=== PATIENT | female | born 1985 | race Caucasian/White ===

== ENCOUNTER 2017-08-30 11:00 | Observation (INO) | payer OTHER ==
[~2017-08-30 11:00] MED LIST: DSS100 PO; IBUP-2070 PO; METH850P2 PO; PERCT PO; PREN1TAB78 PO
[2017-08-30] MEDS ORDERED: GLYB2.5 PO (11:11)
[2017-08-30] MEDS ORDERED: PREN1TAB89 PO (11:11)
[2017-08-30 12:01] LABS: BASOPHILS % (AUTO) 0.6 % (0.0-2.0); EOSINOPHILS % (AUTO) 0.3 % (1.0-6.0); HEMATOCRIT 32.5 % (36-46); HEMOGLOBIN 11.2 g/dL (12.0-16.0); LYMPHOCYTES # (AUTO) 1.1 K/uL (1.0-4.8); LYMPHOCYTES % (AUTO) 16.8 % (22.0-44.0); MEAN CORPUSCULAR HEMOGLOBIN 28.8 pg (26.0-34.0); MEAN CORPUSCULAR HGB CONC 34.4 G/dL (31.0-37.0); MEAN CORPUSCULAR VOLUME 84 fL (80-100); MONOCYTES # (AUTO) 0.4 K/uL (0.1-1.0); MONOCYTES % (AUTO) 6.5 % (2.0-9.0); NEUTROPHILS # (AUTO) 4.9 K/uL (1.8-7.7); NEUTROPHILS % (AUTO) 75.8 % (40.0-70.0); PLATELET COUNT (AUTO) 141 K/uL (150-450); RED BLOOD CELL COUNT(AUTO) 3.89 MIL/uL (4.00-5.20); RED CELL DISTRIBUTION WIDTH 14.1 % (11.5-14.5)
[2017-08-30 12:11] LABS: ANION GAP 10 mmol/L (8-16); CALCIUM, TOTAL 8.3 mg/dL (8.8-10.5); CARBON DIOXIDE 22 mmol/L (22-29); CHLORIDE 104 mmol/L (98-107); CREATININE 0.56 mg/dL (0.60-1.30); GLOMERULAR FILTR. RATE CALC > 60 mL/min (>60); GLUCOSE,RANDOM 99 mg/dL (70-110); SODIUM SERUM 136 mmol/L (136-145); UREA NITROGEN, BLOOD 9 mg/dL (7-18)
[2017-08-30 12:17] LABS: GLUCOMETER DEV NAME(LOC) 4S 8; GLUCOSE,POINT OF CARE 100 MG/DL (70-110)
[2017-08-30 12:17] LABS: ALANINE AMINOTRANSFERASE 11 U/L (12-78); ALBUMIN 2.4 g/dL (3.4-5.0); ALKALINE PHOSPHATASE 188 U/L (46-116); ASPARTATE AMINOTRANSFERASE 19 U/L (15-37); BILIRUBIN,TOTAL 0.4 mg/dL (0.1-1.0); TOTAL PROTEIN, SERUM 6.7 g/dL (6.4-8.2); URIC ACID 3.7 mg/dL (2.6-7.2)
[2017-08-30 13:20] VITALS: BP 134/84
== END 2017-08-30 13:15 | disposition home or self-care (01) ==
LOC: 4S 11:00
PROVIDERS: ADMIT Obstetrics & Gynecology; ATTEND Obstetrics & Gynecology
DX: Z34.83 Encounter for supervision of other normal pregnancy, third trimester (principal); Z3A.38 38 weeks gestation of pregnancy
CPT/HCPCS: 36415; 59025; 80053; 82962; 84550; 85025; G0378

== ENCOUNTER 2017-08-31 04:44 | Inpatient (IN) | payer OTHER ==
[~2017-08-31] VITALS: Ht 155 cm; Wt 71.7 kg
[~2017-08-31 04:44] MED LIST changes: +GLYB2.5 PO; -PREN1TAB78 PO; +PREN1TAB89 PO
[2017-08-31] MEDS ORDERED: RINGERS SOLUTION,LACTATED 1,000 ML IV ONE (04:54)
[2017-08-31] MEDS ORDERED: CITRIC ACID/SODIUM CITRATE 30 ML SOLUTION UDCUP PO ONE (05:00)
[2017-08-31] MEDS ORDERED: METOCLOPRAMIDE HCL 5 MG/ML 2 ML VIAL IVP ONE (05:00)
[2017-08-31 05:37] VITALS: BP 122/78
[2017-08-31 05:43] LABS: BASOPHILS % (AUTO) 0.6 % (0.0-2.0); EOSINOPHILS % (AUTO) 0.8 % (1.0-6.0); HEMATOCRIT 32.7 % (36-46); HEMOGLOBIN 11.2 g/dL (12.0-16.0); LYMPHOCYTES # (AUTO) 1.2 K/uL (1.0-4.8); LYMPHOCYTES % (AUTO) 18.1 % (22.0-44.0); MEAN CORPUSCULAR HEMOGLOBIN 28.6 pg (26.0-34.0); MEAN CORPUSCULAR HGB CONC 34.1 G/dL (31.0-37.0); MEAN CORPUSCULAR VOLUME 84 fL (80-100); MONOCYTES # (AUTO) 0.4 K/uL (0.1-1.0); MONOCYTES % (AUTO) 6.4 % (2.0-9.0); NEUTROPHILS # (AUTO) 5.1 K/uL (1.8-7.7); NEUTROPHILS % (AUTO) 74.1 % (40.0-70.0); PLATELET COUNT (AUTO) 137 K/uL (150-450); RED BLOOD CELL COUNT(AUTO) 3.91 MIL/uL (4.00-5.20); RED CELL DISTRIBUTION WIDTH 14.2 % (11.5-14.5)
[2017-08-31 06:10] VITALS: BP 122/78
[2017-08-31] MEDS ORDERED: MORPHINE SULFATE/PF 1 MG/ML 10 ML AMP ONE (06:15)
[2017-08-31] MEDS ORDERED: CeFAZolin 2 GM/DEXTROSE 50 ML IV ONE (06:15)
[2017-08-31] MEDS ORDERED: FentaNYL CITRATE-PF 100 MCG/2 ML VIAL ONE (06:15)
[2017-08-31 06:22] LABS: GLUCOMETER DEV NAME(LOC) 4S 8; GLUCOSE,POINT OF CARE 102 MG/DL (70-110)
[2017-08-31] MEDS ORDERED: METHYLERGONOVINE MALEATE 0.2 MG/ML VIAL ONE (07:33)
[2017-08-31] MEDS ORDERED: DEXAMETHASONE SOD PHOS 4 MG/ML VIAL IVP PRN (07:45)
[2017-08-31] MEDS ORDERED: ONDANSETRON HCL 4 MG/2 ML VIAL IVP PRN ×2 (07:45)
[2017-08-31] MEDS ORDERED: NALOXONE HCL 0.4 MG/ML VIAL IVP PRN (07:45)
[2017-08-31] MEDS ORDERED: FentaNYL CITRATE-PF 100 MCG/2 ML VIAL IVP PRN ×6 (07:45→08:30)
[2017-08-31] MEDS ORDERED: MEPERIDINE-PF 25 MG/ML SYRINGE IVP PRN (07:45)
[2017-08-31] MEDS ORDERED: DiphenhydrAMINE HCL 50 MG/ML VIAL IVP PRN ×2 (07:45)
[2017-08-31] MEDS ORDERED: ACETAMINOPHEN 1000 MG/ISO-OSM 100 ML IV ONE ×2 (07:45→08:11)
[2017-08-31] MEDS ORDERED: NALBUPHINE HCL 10 MG/ML VIAL IVP PRN (07:45)
[2017-08-31] MEDS ORDERED: ACETAMINOPHEN/CODEINE 300-30 MG TABLET PO PRN ×2 (08:15)
[2017-08-31] MEDS ORDERED: LANOLIN 7 GM OINTMENT TP PRN (08:15)
[2017-08-31] MEDS ORDERED: MORPHINE SULFATE/PF 0.5 MG/ML 10 ML AMP ONE (08:29)
[2017-08-31] MEDS ORDERED: MORPHINE SULFATE 2 MG/ML SYRINGE IVP PRN ×2 (08:30)
[2017-08-31] MEDS ORDERED: MORPHINE SULFATE 10 MG/ML SYRINGE IVP PRN (08:30)
[2017-08-31] MEDS: MAGNESIUM HYDROXIDE SUSPENSION 30 ML UDCUP PO SCH ×2 (09:00→20:52)
[2017-08-31] MEDS: DEXTROSE 5%-0.45% SODIUM CHL 1,000 ML IV SCH ×3 (09:34→18:00)
[2017-08-31] MEDS ORDERED: DEXAMETHASONE SOD PHOS 4 MG/ML VIAL IVP ONE (12:00)
[2017-08-31] MEDS ORDERED: EPHEDrine SULFATE 50 MG/ML VIAL IM ONE (12:00)
[2017-08-31] MEDS ORDERED: PHENYLEPHRINE HCL 10 MG/ML VIAL IVP ONE (12:00)
[2017-08-31] MEDS ORDERED: OXYTOCIN 10 UNITS/ML 10 ML VIAL IV ONE (12:00)
[2017-08-31] MEDS ORDERED: ONDANSETRON HCL 4 MG/2 ML VIAL IVP ONE (12:00)
[2017-08-31] MEDS ORDERED: LIDOCAINE HCL/PF 2% 5 ML VIAL INJ ONE (12:00)
[2017-08-31] MEDS: NALBUPHINE HCL 10 MG/ML VIAL IVP SCH ×3 (12:48→23:56)
[2017-08-31] MEDS ORDERED: DEXTROSE 5%-0.45% SODIUM CHL 1,000 ML IV ONE (16:41)
[2017-08-31] MEDS: ACETAMINOPHEN 1000 MG/ISO-OSM 100 ML IV SCH (16:51)
[2017-09-01] MEDS: ACETAMINOPHEN 1000 MG/ISO-OSM 100 ML IV SCH (01:01)
[2017-09-01] MEDS: DEXTROSE 5%-0.45% SODIUM CHL 1,000 ML IV SCH (01:01)
[2017-09-01] MEDS: IBUPROFEN 800 MG TABLET PO SCH ×4 (01:01→18:45)
[2017-09-01] MEDS: NALBUPHINE HCL 10 MG/ML VIAL IVP SCH (05:55)
[2017-09-01] MEDS: MAGNESIUM HYDROXIDE SUSPENSION 30 ML UDCUP PO SCH ×2 (08:44→21:11)
[2017-09-02] MEDS: IBUPROFEN 800 MG TABLET PO SCH ×5 (00:49→23:45)
[2017-09-02] MEDS: MAGNESIUM HYDROXIDE SUSPENSION 30 ML UDCUP PO SCH ×2 (08:25→21:16)
[2017-09-03] MEDS: IBUPROFEN 800 MG TABLET PO SCH (06:25)
[2017-09-03] MEDS ORDERED: IBUP-2070 PO (10:02)
[2017-09-03] MEDS ORDERED: DSS100 PO (10:03)
[2017-09-03] MEDS ORDERED: FERR-89 PO (10:04)
[2017-09-03] MEDS ORDERED: ACET1TAB12 PO (10:06)
== END 2017-09-03 11:00 | disposition home or self-care (01) | DRG 766 ==
LOC: 4S 04:44 → PREOBSVTOIN 10-02 05:16
PROVIDERS: ADMIT Obstetrics & Gynecology; ATTEND Obstetrics & Gynecology
PROC: 10D00Z1 Extraction of Products of Conception, Low, Open Approach (ICD-10-PCS; principal; 2017-08-31)
DX: O34.211 Maternal care for low transverse scar from previous cesarean delivery (principal); Z37.0 Single live birth; Z3A.39 39 weeks gestation of pregnancy
CPT/HCPCS: 82962; 86850; 86900; 86901; 87081; J0131; J0690; J1100; J2175; J2210; J2274; J2300; J2370; J2405; J2590; J2765; J3010; J3490; J7120